=== PATIENT | male | born 1945 | race Caucasian/White ===

== ENCOUNTER → 2016-07-01 | Outpatient (CLI) | payer MEDICARE, BC ==
[~2016-07-01] MED LIST: ASPI-496 PO; CARB1TAB2 PO; CARB1TAB5 PO; CHOL100011 PO; ENTA200T PO; ESCI10TA10 PO; FISH1CAP PO; MULT-717 PO; NAMENDA PO; PRAM0.5T5 PO; RASA1TAB PO
== END | disposition home or self-care (01) ==
LOC: CFH 13:51
PROVIDERS: ATTEND Internal Medicine
DX: N28.1 Cyst of kidney, acquired (principal)
CPT/HCPCS: 76770

== ENCOUNTER → 2017-08-18 | Outpatient (CLI) | payer MEDICARE, BC ==
[~2017-08-18] MED LIST changes: -RASA1TAB PO; +RASA1TAB2 PO
== END | disposition home or self-care (01) ==
LOC: CFH 15:26
PROVIDERS: ATTEND Nurse Practitioner Primary Care
DX: M51.36 Other intervertebral disc degeneration, lumbar region (principal); R53.83 Other fatigue; E55.9 Vitamin D deficiency, unspecified; E78.2 Mixed hyperlipidemia; E88.81 Metabolic syndrome and other insulin resistance; R94.4 Abnormal results of kidney function studies; E53.9 Vitamin B deficiency, unspecified; R89.4 Abnormal immunological findings in specimens from other organs, systems and tissues; R01.1 Cardiac murmur, unspecified; F06.31 Mood disorder due to known physiological condition with depressive features; G20 Parkinson's disease; R93.7 Abnormal findings on diagnostic imaging of other parts of musculoskeletal system; K59.00 Constipation, unspecified; M54.30 Sciatica, unspecified side; Z79.899 Other long term (current) drug therapy
CPT/HCPCS: 72100

== ENCOUNTER → 2017-08-27 | Outpatient (CLI) | payer MEDICARE, BC | END | disposition home or self-care (01) | LOC: CFH 06:56 | PROVIDERS: ATTEND Nurse Practitioner Primary Care | DX: M54.16 Radiculopathy, lumbar region (principal); M24.28 Disorder of ligament, vertebrae; M25.78 Osteophyte, vertebrae; E55.9 Vitamin D deficiency, unspecified; R53.83 Other fatigue; E78.2 Mixed hyperlipidemia; E88.81 Metabolic syndrome and other insulin resistance; R94.4 Abnormal results of kidney function studies; E53.9 Vitamin B deficiency, unspecified; R89.4 Abnormal immunological findings in specimens from other organs, systems and tissues; R01.1 Cardiac murmur, unspecified; F06.31 Mood disorder due to known physiological condition with depressive features; G20 Parkinson's disease; R93.7 Abnormal findings on diagnostic imaging of other parts of musculoskeletal system; K59.00 Constipation, unspecified; M54.30 Sciatica, unspecified side | CPT/HCPCS: 72148 ==

== ENCOUNTER → 2017-09-23 | Outpatient (CLI) | payer MEDICARE, BC ==
[~2017-09-23] MED LIST changes: +GADOBUTROL 7.5 MMOL/7.5 ML PFS ONE
== END | disposition home or self-care (01) ==
LOC: CFH 15:13
PROVIDERS: ATTEND Physician Assistant Surgical
DX: M47.897 Other spondylosis, lumbosacral region (principal); E78.2 Mixed hyperlipidemia; Z79.899 Other long term (current) drug therapy
CPT/HCPCS: 72197; A9585

== ENCOUNTER → 2018-02-02 | Outpatient (CLI) | payer MEDICARE, BC ==
[~2018-02-02] MED LIST changes: -GADOBUTROL 7.5 MMOL/7.5 ML PFS ONE
== END | disposition home or self-care (01) ==
LOC: CFH 11:13
PROVIDERS: ATTEND Nurse Practitioner Primary Care
DX: Z13.820 Encounter for screening for osteoporosis (principal); M85.88 Other specified disorders of bone density and structure, other site
CPT/HCPCS: 77080

== ENCOUNTER → 2018-03-19 | Outpatient (CLI) | payer MEDICARE, BC | END | disposition home or self-care (01) | LOC: CFH 14:40 | PROVIDERS: ATTEND Internal Medicine | DX: M47.817 Spondylosis without myelopathy or radiculopathy, lumbosacral region (principal); E55.9 Vitamin D deficiency, unspecified; E78.2 Mixed hyperlipidemia; Z79.899 Other long term (current) drug therapy; Z86.718 Personal history of other venous thrombosis and embolism | CPT/HCPCS: 72110 ==